=== PATIENT | male | born 1970 | race Caucasian/White ===

== ENCOUNTER 2017-02-20 16:46 | Inpatient (IN) | payer MEDICAID ==
[~2017-02-20] VITALS: Ht 172.7 cm; Wt 109.4 kg
[~2017-02-20 16:46] MED LIST: ASP81EC PO; CLOP75TA28 PO; FAM20T PO; LISI-275 PO; MET50T PO; Nitroglycerin SL; SIMV20TA90 PO
[2017-02-20] MEDS ORDERED: ONDANSETRON HCL 4 MG/2 ML VIAL IV ONE (17:00)
[2017-02-20] MEDS ORDERED: MORPHINE SULFATE 4 MG/ML SYRG IV ONE (17:00)
[2017-02-20] MEDS ORDERED: ENOXAPARIN SOD 30 MG/0.3 ML SYRINGE IV ONE (17:00)
[2017-02-20 17:22] LABS: Basophils # (auto) 0.1 uL; Basophils % (auto) 0.3 % (0.0-2.0); Eosinophils # (auto) 0.2 uL; Eosinophils % (auto) 1.4 % (0.0-7.0); Hematocrit 47.4 % (41.0-53.0); Hemoglobin 15.8 g/dL (13.5-17.5); Lymphocytes # (auto) 3.5 uL; Mean Corpuscular Hemoglobin 29.4 pg (28.0-32.0); Mean Corpuscular Hgb Conc. 33.3 g/dL (32.0-36.0); Mean Corpuscular Volume 88.2 fL (80.0-100.0); Mean Platelet Volume 9.8 fL (7.4-10.4); Monocytes # (auto) 1.2 uL; Monocytes % (auto) 7.9 % (0.0-12.0); Neutrophils # (auto) 10.3 uL; Neutrophils % (auto) 67.4 % (37.0-80.0); Platelet Count (auto) 259 10^3/uL (140-450); Red Cell Distribution Width 14.1 % (11.6-16.0); White Blood Cell 15.3 10^3/uL (4.4-10.8)
[2017-02-20] MEDS ORDERED: fentaNYL CITRATE 100 MCG/2 ML VL ONE (17:26)
[2017-02-20] MEDS ORDERED: ANGIOMAX 250 MG VIAL IV ONE ×2 (17:26→18:33)
[2017-02-20] MEDS ORDERED: MIDAZOLAM HCL 1MG/1ML-2 ML VIAL ONE (17:27)
[2017-02-20] MEDS ORDERED: SODIUM CHL 0.9% 50 ML ONE ×2 (17:27→18:33)
[2017-02-20] MEDS ORDERED: IODIXANOL 320MG/ML 100ML BTL IV ONE (17:27)
[2017-02-20] MEDS ORDERED: EPTIFIBATIDE INJ (2MG/ML) 10ML VIAL IV ONE (17:27)
[2017-02-20] MEDS ORDERED: LIDOCAINE 2%HCL (LOCAL ANESTH.) INJ 20ML MDV ONE (17:28)
[2017-02-20 17:35] LABS: INR 0.98 (0.9-1.15); Partial Thromboplastin Time 24.5 sec (22.64-33.71); Prothrombin Time 10.6 sec (9.37-12.3)
[2017-02-20 17:44] LABS: Albumin 3.8 g/dL (3.4-5.0); Anion Gap 11 (5-15); Aspartate Aminotransferase 16 U/L (15-37); BUN/Creatinine Ratio 16.1; Blood Urea Nitrogen 19 mg/dL (7-18); Calcium 8.6 mg/dL (8.5-10.1); Carbon Dioxide 25 mmol/L (21-32); Chloride 106 mmol/L (98-107); GFR African American 85 mL/min; GFR Non-African American 70 mL/min; Glucose 123 mg/dL (74-106); Magnesium 2.1 mg/dL (1.6-2.6); Potassium 3.5 mmol/L (3.5-5.1); Sodium 142 mmol/L (136-145)
[2017-02-20 17:49] LABS: Alkaline Phosphatase 61 U/L (45-117); Bilirubin, Total 0.3 mg/dL (0.2-1.0)
[2017-02-20] MEDS ORDERED: CLOPIDOGREL 300 MG TAB ONE (18:45)
[2017-02-20] MEDS ORDERED: ASPirin 81 mg TAB ONE (18:46)
[2017-02-20] MEDS ORDERED: EPTIFIBATIDE DRIP(0.75MG/ML) 100 ML IV ONE ×3 (18:49→21:32)
[2017-02-20] MEDS ORDERED: TEMAZEPAM 15 MG CAP PO PRN (19:30)
[2017-02-20] MEDS ORDERED: D5W/SOD CHL 0.45% 1,000 ML IV SCH (19:30)
[2017-02-20] MEDS ORDERED: HYDROmorphone HCL 2 MG/ML VL IV PRN (19:30)
[2017-02-20] MEDS ORDERED: HYDROcodone-ACET 5/325MG TAB PO PRN (19:30)
[2017-02-20] MEDS ORDERED: ONDANSETRON HCL 4 MG/2 ML VIAL IV PRN (19:30)
[2017-02-20] MEDS ORDERED: NITROGLYCERIN 0.4 MG SL TAB SL PRN (19:45)
[2017-02-20] MEDS ORDERED: MORPHINE SULF INJ 2 MG/ML SYRINGE 1ML IV PRN (19:45)
[2017-02-20 21:45] VITALS: BP 125/76
[2017-02-20] MEDS ORDERED: ATORVASTATIN 20 MG TAB PO SCH (22:00)
[2017-02-20] MEDS: METOPROLOL TARTRATE 50 MG TAB PO SCH (22:14)
[2017-02-20] MEDS: FAMOTIDINE 20 MG TAB PO SCH (22:14)
[2017-02-20] MEDS: ALPRAZolam 0.25 MG TAB PO SCH (22:14)
[2017-02-21] VITALS: BP 122/78
[2017-02-21] MEDS ORDERED: METO25TA5 PO (01:38)
[2017-02-21 04:00] VITALS: BP 140/71
[2017-02-21] MEDS: ALPRAZolam 0.25 MG TAB PO SCH (05:30)
[2017-02-21 06:24] LABS: Basophils # (auto) 0 uL; Basophils % (auto) 0.3 % (0.0-2.0); Eosinophils # (auto) 0.1 uL; Eosinophils % (auto) 0.8 % (0.0-7.0); Hematocrit 44.3 % (41.0-53.0); Hemoglobin 14.6 g/dL (13.5-17.5); Lymphocytes # (auto) 2.1 uL; Lymphocytes % (auto) 16.2 % (10.0-50.0); Mean Corpuscular Hemoglobin 29.2 pg (28.0-32.0); Mean Corpuscular Hgb Conc. 33.1 g/dL (32.0-36.0); Mean Corpuscular Volume 88.4 fL (80.0-100.0); Mean Platelet Volume 9.8 fL (7.4-10.4); Monocytes # (auto) 1.1 uL; Monocytes % (auto) 8.3 % (0.0-12.0); Neutrophils # (auto) 9.5 uL; Neutrophils % (auto) 74.4 % (37.0-80.0); Platelet Count (auto) 211 10^3/uL (140-450); White Blood Cell 12.7 10^3/uL (4.4-10.8)
[2017-02-21 06:44] LABS: Potassium 3.7 mmol/L (3.5-5.1)
[2017-02-21 08:00] VITALS: BP 129/75
[2017-02-21] MEDS: FAMOTIDINE 20 MG TAB PO SCH ×2 (09:25→09:27)
[2017-02-21] MEDS: METOPROLOL TARTRATE 50 MG TAB PO SCH (09:26)
[2017-02-21] MEDS ORDERED: LISINOPRIL 5 MG TAB PO SCH (10:00)
[2017-02-21] MEDS ORDERED: ASPirin 81 mg TAB PO SCH (10:00)
[2017-02-21] MEDS ORDERED: CLOPIDOGREL BISULFATE 75 MG TAB PO SCH (10:00)
[2017-02-21 12:00] VITALS: BP 120/66
[2017-02-22 08:06] LABS: Thyroxine (T4) 5.9 ug/dL (4.5-12.0)
== END 2017-02-21 14:36 | disposition left against medical advice (07) | DRG 174 ==
LOC: EDUNIT# 16:46 → ER 16:49 → CATH 17:09 → DOU IN ICU 17:10
PROVIDERS: ADMIT Specialist; ATTEND Specialist
PROC: 027236Z Dilation of Coronary Artery, Three Arteries with Three Drug-eluting Intraluminal Devices, Percutaneous Approach (ICD-10-PCS; principal; 2017-02-20)
PROC: 4A023N7 Measurement of Cardiac Sampling and Pressure, Left Heart, Percutaneous Approach (ICD-10-PCS; 2017-02-20)
PROC: B2111ZZ Fluoroscopy of Multiple Coronary Arteries using Low Osmolar Contrast (ICD-10-PCS; 2017-02-20)
PROC: 02C03ZZ Extirpation of Matter from Coronary Artery, One Artery, Percutaneous Approach (ICD-10-PCS; 2017-02-20)
PROC: B41F1ZZ Fluoroscopy of Right Lower Extremity Arteries using Low Osmolar Contrast (ICD-10-PCS; 2017-02-20)
DX: I21.19 ST elevation (STEMI) myocardial infarction involving other coronary artery of inferior wall (principal); I10 Essential (primary) hypertension; E78.5 Hyperlipidemia, unspecified; I25.10 Atherosclerotic heart disease of native coronary artery without angina pectoris; F17.210 Nicotine dependence, cigarettes, uncomplicated; Z79.899 Other long term (current) drug therapy; Z90.49 Acquired absence of other specified parts of digestive tract; Z98.61 Coronary angioplasty status; I25.2 Old myocardial infarction; Z71.89 Other specified counseling
CPT/HCPCS: 92928; 92929; 92973; 93458; 96374; 96375; 99285; G0278; 36415; 71010; 80048; 80053; 80061; 82962; 83036; 83735; 84443; 84484; 85025; 85610; 85730; 87081; 93005; 94761; 99152; C1874; J2250; J2405; Q9967

== ENCOUNTER 2017-07-30 10:47 | Emergency (ER) | payer MEDICAID ==
[~2017-07-30] VITALS: Ht 175.3 cm; Wt 110.2 kg
[~2017-07-30 10:47] MED LIST changes: -MET50T PO; +METO25TA5 PO
[2017-07-30 11:32] VITALS: BP 121/81
== END 2017-07-30 12:04 | disposition home or self-care (01) ==
LOC: ER 10:47
DX: S60.466A Insect bite (nonvenomous) of right little finger, initial encounter (principal); I25.10 Atherosclerotic heart disease of native coronary artery without angina pectoris; I10 Essential (primary) hypertension; Z79.82 Long term (current) use of aspirin; L08.9 Local infection of the skin and subcutaneous tissue, unspecified; W57.XXXA Bitten or stung by nonvenomous insect and other nonvenomous arthropods, initial encounter; Y93.89 Activity, other specified; Y99.8 Other external cause status; Y92.89 Other specified places as the place of occurrence of the external cause

== ENCOUNTER 2017-08-01 12:13 | Emergency (ER) | payer MEDICAID ==
[~2017-08-01] VITALS: Ht 175.3 cm; Wt 110.2 kg
[2017-08-01 12:50] VITALS: BP 137/77
[2017-08-01] MEDS ORDERED: LIDOCAINE 1% HCL (LOCAL ANESTH.) INJ 20ML MDV ONE (15:14)
[2017-08-01] MEDS ORDERED: cefTRIAXone SOD 1,000 MG VL IM ONE (15:30)
[2017-08-01] MEDS ORDERED: LIDOCAINE 1% HCL (LOCAL ANESTH.) INJ 20ML MDV IJ ONE (15:30)
== END 2017-08-01 15:56 | disposition home or self-care (01) ==
LOC: ER 12:13
DX: L02.511 Cutaneous abscess of right hand (principal); Z79.82 Long term (current) use of aspirin; I25.810 Atherosclerosis of coronary artery bypass graft(s) without angina pectoris; F17.210 Nicotine dependence, cigarettes, uncomplicated
CPT/HCPCS: 10060; 87077; 87186; 87205; 96372; 99283; J0696; J2001